=== PATIENT | female | born 1960 | race Caucasian/White ===

== ENCOUNTER 2016-07-21 14:36 | Emergency (ER) | payer MEDICAID, OTHER ==
[2016-07-21 14:46] VITALS: BP 146/82
[2016-07-21] MEDS ORDERED: Albuterol 2.5 MG/3 ML NEB.SOL* (0.083%) INH ONE (15:09)
[2016-07-21] MEDS ORDERED: Ipratropium 0.5MG/2.5ML NEB* 0.5 MG/2.5 ML NEB.SOLN INH ONE (15:09)
--- NOTE | 2016-07-21 15:40 | RAD ---
INDICATION: Cough and wheezing. COMPARISON: Comparison is made with a prior chest x-ray study from June 28, 2015. TECHNIQUE: Dual-energy PA and lateral views of the chest were obtained. FINDINGS: The heart is within normal limits in size. There is a new focal area of increased density present medially at the right lung base which appears to be in the right middle lobe most consistent with pneumonia. No pleural effusion is seen. The lungs are hyperinflated with flattening of the diaphragms consistent with chronic obstructive pulmonary disease. IMPRESSION: 1. RIGHT MIDDLE LOBE INFILTRATE MOST CONSISTENT WITH PNEUMONIA. RECOMMEND FOLLOW-UP CHEST X-RAYS TO RESOLUTION. 2. COPD.
--- NOTE | 2016-07-21 16:31 | UC ---
Respiratory Complaint HPI - HPI Summary HPI Summary: TWO WEEKS OF WORSENING NONPRODUCTIVE COUGH AND WHEEZING, WITH SHORTNESS OF BREATH WORSE WITH EXERTION. 40 PACK YEAR SMOKER. HISTORY OF PNEUMONIA LAST YEAR. NO FEVER. NO CHEST PAIN. - History of Current Complaint Chief Complaint: UCRespiratory Stated Complaint: COUGH, AND CHEST CONGESTION Time Seen by Provider: 07/21/16 14:53 Hx Obtained From: Patient Hx Last Menstrual Period: feb 2015 Onset/Duration: Gradual Onset, Lasting Weeks, Still Present Timing: Constant Severity Initially: Mild Severity Currently: Moderate Character: Cough: Nonproductive Aggravating Factors: Exertion, Deep Breaths Alleviating Factors: Bronchodilator Associated Signs And Symptoms: Positive: Wheezing, URI, Nasal Congestion. Negative: Fever, Chills, Pleuritic Chest Pain, Hemoptysis, Dizziness, Calf Pain , Calf Swelling, Hoarseness, Sinus Discomfort - Risk Factors Pulmonary Embolism Risk Factors: Negative Cardiac Risk Factors: Negative Pseudomonas Risk Factors: Negative Tuberculosis Risk Factors: Negative - Allergies/Home Medications Allergies/Adverse Reactions: Allergies Allergy/AdvReac Type Severity Reaction Status Date / Time Penicillins Allergy Hives Verified 07/21/16 14:46 BEES Allergy SWELLING, Uncoded 07/01/15 16:33 SOB Home Medications: Home Medications Ibuprofen TAB* [Advil TAB*] 400 mg PO PRN 07/21/16 [History] PMH/Surg Hx/FS Hx/Imm Hx Previously Healthy: Yes Endocrine History Of: Denies: Diabetes, Thyroid Disease Cardiovascular History Of: Denies: Cardiac Disorders, Hypertension Respiratory History Of: Reports: COPD - possible, Asthma, Bronchitis - 20 YEARS AGO GI/ History Of: Denies: Ulcer - Surgical History Surgical History: Yes Surgery Procedure, Year, and Place: C [id number], [place]. [place] [facility] [place] [facility] [place], [place], [facility] [place] abdominal her[place] - Family History Known Family History: Positive: Hypertension, Other - Mother of lung cancer. Father unknown. - Social History Occupation: Unemployed Lives: With Family Alcohol Use: Daily Alcohol Amount: 1-2 BEERS Substance Use Type: None Smoking Status (MU): Current Every Day Smoker Type: Cigarettes Amount Used/How Often: <1 ppd Length of Time of Smoking/Using Tobacco: 40 years Have You Smoked in the Last Year: Yes Household Exposure Type: Cigarettes Cessation Counseling: Counseled 10+ Min - Immunization History Most Recent Tetanus Shot: unknown Review of Systems Constitutional: Negative Skin: Negative Eyes: Negative ENT: Negative Respiratory: Cough Cardiovascular: Negative Gastrointestinal: Negative Genitourinary: Negative Motor: Negative Neurovascular: Negative Musculoskeletal: Negative Neurological: Negative Psychological: Negative All Other Systems Reviewed And Are Negative: Yes Physical Exam Triage Information Reviewed: Yes Appearance: No Pain Distress, Well-Nourished, Ill-Appearing - MILD Vital Signs: Initial Vital Signs Temp 96.2 F 07/21/16 14:42 Pulse 82 07/21/16 14:42 Resp 20 07/21/16 14:42 BP 146/82 07/21/16 14:42 Pulse Ox 96 07/21/16 14:42 Vital Signs Reviewed: Yes Eye Exam: Normal ENT Exam: Normal ENT: Positive: Normal ENT inspection, Hearing grossly normal, Pharynx normal, TMs normal Dental Exam: Normal Neck exam: Normal Neck: Positive: Supple, Nontender, No Lymphadenopathy Respiratory: Positive: Chest non-tender, No respiratory distress, No accessory muscle use, Wheezing Cardiovascular Exam: Normal Cardiovascular: Positive: RRR, No Murmur, Pulses Normal Abdominal Exam: Normal Abdomen Description: Positive: Nontender, No Organomegaly Musculoskeletal Exam: Normal Neurological Exam: Normal Psychological Exam: Normal Skin Exam: Normal UC Diagnostic Evaluation - Laboratory O2 Sat by Pulse Oximetry: 96 Respiratory Course/Dx - Differential Dx/Diagnosis Differential Diagnosis/HQI/PQRI: Bronchitis, Exacerbation Of COPD, Sinusitis Provider Diagnoses: COMMUNITY ACQUIRED PNEUMONIA. COPD. TOBACCO ABUSE Discharge - Discharge Plan Condition: Stable Disposition: HOME Prescriptions: Albuterol HFA INHALER* [Ventolin HFA Inhaler*] 1 - 2 puff INH Q4H PRN #1 mdi PRN Reason: Wheezing Clarithromycin TAB* [Biaxin TAB*] 500 mg PO BID #14 tab Patient Education Materials: How to Stop Smoking (ED), COPD (Chronic Obstructive Pulmonary Disease) (ED), Community Acquired Pneumonia (ED) [place]errals: [facility] [place] [Outside] No Primary Care Phys,NOPCP [Primary Care Provider] - Additional Instructions: PLEASE ESTABLISH PRIMARY CARE AND FOLLOW UP FOR REPEAT CHEST XRAY IN SEVEN DAYS. PLEASE GO TO EMERGENCY DEPARTMENT IF SYMPTOMS WORSEN, OR IF NEW SYMPTOMS DEVELOP
== END 2016-07-21 16:25 | disposition home or self-care (01) ==
LOC: UCEAST 14:36
DX: J18.8 Other pneumonia, unspecified organism (principal); J45.909 Unspecified asthma, uncomplicated; Z88.0 Allergy status to penicillin; F17.290 Nicotine dependence, other tobacco product, uncomplicated
CPT/HCPCS: 71020; 99212; G0463; J7644

== ENCOUNTER 2017-05-20 15:18 | Emergency (ER) | payer OTHER ==
[2017-05-20 15:49] VITALS: BP 134/83
--- NOTE | 2017-05-20 16:27 | RAD ---
HISTORY: Left thumb and wrist pain after fall COMPARISONS: None VIEWS: 3, Frontal, lateral, and oblique views of the left wrist FINDINGS: BONE DENSITY: Normal. BONES: There is no displaced fracture. JOINTS: There is advanced osteoarthritis of the first CMC joint. ALIGNMENT: There is no dislocation. SOFT TISSUES: Unremarkable. OTHER FINDINGS: None. IMPRESSION: OSTEOARTHRITIS. NO ACUTE OSSEOUS INJURY. IF SYMPTOMS PERSIST, RECOMMEND REPEAT IMAGING.
--- NOTE | 2017-05-20 16:27 | RAD ---
HISTORY: Left thumb and wrist pain after fall COMPARISONS: None VIEWS: 3, Frontal, lateral, and oblique views of the first digit of the left hand FINDINGS: BONE DENSITY: Normal. BONES: There is no displaced fracture. JOINTS: There is advanced osteoarthritis of the first CMC joint. There is osteoarthritis of the first MCP joint. ALIGNMENT: There is no dislocation. SOFT TISSUES: Unremarkable. OTHER FINDINGS: None. IMPRESSION: OSTEOARTHRITIS. NO ACUTE OSSEOUS INJURY. IF SYMPTOMS PERSIST, RECOMMEND REPEAT IMAGING.
--- NOTE | 2017-05-20 16:29 | UC ---
Upper Extremity HPI - HPI Summary HPI Summary: 56 y/o female presents to the urgent care c/o left thumb and wrist pain that has worse the past week. Pt reports she fell on February/2017 and injured her thumb. However she didn't seek any medical treatment. Pt also states she has Hx of B/L carpel tunel surgery many years ago. Pain is sharp and is 8/10 with movement and 4/10 with rest. she has taken Aleve PO to alleviate symptoms. Pt denies numbness and tingling over the thumb or hand, fever, SOB, chest pain, abdominal pain, N/V/D. She works in a farm. - History of Current Complaint Chief Complaint: UCUpperExtremity Stated Complaint: THUMB INJURY Time Seen by Provider: 05/20/17 15:29 Hx Obtained From: Patient Hx Last Menstrual Period: feb 2015 Onset/Duration: Sudden Onset, Lasting Weeks - since february/2017, Still Present, Worse Since - last week Severity Initially: Mild Severity Currently: Moderate Pain Intensity: 8 Pain Scale Used: 0-10 Numeric Location Of Pain: Is Discrete @ - At left thumb and left wrist Character: Sharp Aggravating Factor(s): Movement, Lifting, Flexion, Extension Alleviating Factor(s): OTC Meds, Rest Associated Signs And Symptoms: Positive: Swelling. Negative: Fever, Numbness/ Tingling - Risk Factors Non-Orthopedic Risk Factor: Negative DVT Risk Factors: Negative Septic Arthritis Risk Factor: Negative - Allergies/Home Medications Allergies/Adverse Reactions: Allergies Allergy/AdvReac Type Severity Reaction Status Date / Time Penicillins Allergy Hives Verified 05/20/17 15:49 BEES Allergy Intermediate SWELLING, Uncoded 05/20/17 15:49 SOB PMH/Surg Hx/FS Hx/Imm Hx Previously Healthy: Yes Respiratory History: Asthma - Surgical History Surgical History: Yes Surgery Procedure, Year, and Place: C [id number], [place]. C SECTION 1987, [facility]. RIGHT CARPAL TUNNEL, 1991, [facility]. LEFT CARPAL TUNNEL, 2001, [facility]. abdominal hernia - Family History Known Family History: Positive: Hypertension Family History: Lung cancer - Social History Alcohol Use: Daily Alcohol Amount: 1-2 BEERS Substance Use Type: None Smoking Status (MU): Current Every Day Smoker Type: Cigarettes Amount Used/How Often: <1 ppd Length of Time of Smoking/Using Tobacco: 40 years Have You Smoked in the Last Year: Yes Household Exposure Type: Cigarettes - Immunization History Most Recent Influenza Vaccination: not UTD Most Recent Tetanus Shot: unknown Review of Systems Constitutional: Negative Skin: Negative Eyes: Negative ENT: Negative Respiratory: Negative Cardiovascular: Negative Gastrointestinal: Negative Genitourinary: Negative Motor: Decreased ROM - RT thumb and RT wrist Neurovascular: Negative Musculoskeletal: Other: - RT wrist pain and RT thumb pain Neurological: Negative Psychological: Negative Is Patient Immunocompromised?: No All Other Systems Reviewed And Are Negative: Yes Physical Exam Triage Information Reviewed: Yes Vital Signs: Initial Vital Signs Temp 98.7 F 05/20/17 15:42 Pulse 72 05/20/17 15:42 BP 134/83 05/20/17 15:42 Pulse Ox 97 05/20/17 15:42 - Additional Comments Vital Signs Reviewed: Yes General: Well-Appearing, No Pain Distress, Well-Nourished - female adolescent w/ o any apparent distress Eyes: Positive: Conjunctiva Clear - PERRLA, EOMI ENT: Positive: Normal ENT inspection, Hearing grossly normal, Pharynx normal, TMs normal, Uvula midline Neck: Positive: Supple, Nontender, No Lymphadenopathy Respiratory: Positive: Chest non-tender, Lungs clear, Normal breath sounds, No respiratory distress Cardiovascular: Positive: RRR, No Murmur, Pulses Normal, Brisk Capillary Refill Abdomen Description: Positive: Nontender, No Organomegaly, Soft. Negative: CVA Tenderness (R), CVA Tenderness (L) Bowel Sounds: Positive: Present Musculoskeletal: Positive: Strength Intact, Other: Neurological Exam: Normal Musculoskeletal: Positive: Wrist: the R wrist is without obvious asymmetry or deformity when compared to the L wrist. No surface trauma, open wounds, swelling, or obvious deformity. No overlying erythema or warmth. No bony crepitus. Point tenderness over the thenar eminence and ventral side of wrist. No scaphoid fullness or tenderness to direct palpation or axial load. Decreased ROM due to pain. Motor/sensory function of ulnar, radial, median nerves intact. Ulnar and radial pulses intact. Plhalen test and tinel test positive. Negative Foreign test Psychological Exam: Normal Skin Exam: Normal Upper Extremity Course/Dx - Course Course Of Treatment: 56 y/o female presents to the urgent care c/o left thumb and wrist pain that has worse the past week. Pt reports she fell on 2016 and injured her thumb. However she didn't seek any medical treatment. Pt also states she has Hx of B/L carpel tunel surgery many years ago. Pain is sharp and is 8/10 with movement and 4/10 with rest. she has taken Aleve PO to alleviate symptoms. Pt denies numbness and tingling over the thumb or hand, fever, SOB, chest pain, abdominal pain, N/V/D. She works in a farm. Hx obtained. RT thumb and RT wrist X-ray ordered, Impression:There is advanced osteoarthritis of the first MCCJ. Pt's wrist immobilized with thumb spica. Pt advised if not improvement or worsening of symptoms to f/u with Orthopedic DR Villalobos in 1 week for further management. Pt Rx Naproxen PO and advised RICE. PT explained D/C instructions. Pt understood and agreed with plan of care. - Differential Dx/Diagnosis Differential Diagnosis/HQI/PQRI: Arthritis, Contusion, Fracture (Closed), Strain , Sprain Provider Diagnoses: 1-Acute Rt thumb pain and RT wrist pain s/p fall. 2- Osteorthritis of the RT first MCM joint Discharge - Discharge Plan Condition: Stable Disposition: HOME Prescriptions: Naproxen [Naproxen 500 mg] 500 mg PO Q8H PRN #30 tab PRN Reason: Pain Patient Education Materials: Osteoarthritis (ED) Referrals: [facility] REFERRAL [Outside] - 1 Week Fermin Villalobos MD [Medical Doctor] - 1 Week Additional Instructions: 1-Please take medications after meals as directed to alleviate pain and swelling. 2-Please apply ice, keep your thumb immobilized with the splint. 3- Please f/u with Orthopedic or your PCP in 1 week is not improvement of symptoms for further evaluation and treatment.
== END 2017-05-20 16:46 | disposition home or self-care (01) ==
LOC: UCEAST 15:18
DX: M19.032 Primary osteoarthritis, left wrist (principal); M25.532 Pain in left wrist; M19.042 Primary osteoarthritis, left hand; M79.645 Pain in left finger(s); J45.909 Unspecified asthma, uncomplicated; Z88.0 Allergy status to penicillin; F17.210 Nicotine dependence, cigarettes, uncomplicated
CPT/HCPCS: 99213; G0463

== ENCOUNTER 2017-06-19 15:09 | Emergency (ER) | payer OTHER ==
[2017-06-19 15:34] VITALS: BP 112/67
[2017-06-19] MEDS ORDERED: Ibuprofen TAB* 600 MG PO ONE (17:01)
--- NOTE | 2017-06-19 17:25 | RAD ---
INDICATION: Pain after lifting heavy object COMPARISON: None TECHNIQUE: AP, lateral, and oblique views were obtained. FINDINGS: There is no acute bony change. There is advanced osteoarthritis about the first CMC articulation with sclerosis, hypertrophic change, and subchondral cyst formation. No additional significant bony findings are noted. The soft tissues are normal. The articular relationships are otherwise maintained. IMPRESSION: ADVANCED FIRST CMC JOINT OSTEOARTHRITIS
--- NOTE | 2017-07-14 15:52 | UC ---
Hand/Wrist HPI - HPI Summary HPI Summary: Popping and then pain in left wrist after picking up a propane tank and throwing it in a truck - History Of Current Complaint Chief Complaint: UCUpperExtremity Stated Complaint: WRIST INJURY Time Seen by Provider: 06/19/17 16:56 Hx Obtained From: Patient Hx Last Menstrual Period: feb 2015 ?: No Onset/Duration: Sudden Onset Severity Initially: Moderate Severity Currently: Moderate Pain Intensity: 5 Pain Scale Used: 0-10 Numeric Character Of Pain: Aching, Throbbing Aggravating Factor(s): Movement, Lifting Alleviating Factor(s): Nothing, Ice, OTC Meds Associated Signs And Symptoms: Positive: Negative Related History: Dominant Hand Right - Allergies/Home Medications Allergies/Adverse Reactions: Allergies Allergy/AdvReac Type Severity Reaction Status Date / Time MS Penicillins [Penicillins] Allergy Hives Verified 06/19/17 15:34 BEES Allergy Intermediate SWELLING, Uncoded 05/20/17 15:49 SOB PMH/Surg Hx/FS Hx/Imm Hx Previously Healthy: Yes - Surgical History Surgical History: Yes Surgery Procedure, Year, and Place: C [id number], [place]. C SECTION 1987, [facility]. RIGHT CARPAL TUNNEL, 1991, [facility]. LEFT CARPAL TUNNEL, 2001, [facility]. abdominal hernia - Family History Known Family History: Positive: Hypertension, Other - Mother of lung cancer. Father unknown. Family History: Lung cancer - Social History Occupation: Unemployed Lives: With Family Alcohol Use: Daily Alcohol Amount: 1-2 BEERS Substance Use Type: None Smoking Status (MU): Heavy Every Day Tobacco Smoker Type: Cigarettes Amount Used/How Often: 1 ppd Length of Time of Smoking/Using Tobacco: since age 16 Have You Smoked in the Last Year: Yes Household Exposure Type: Cigarettes - Immunization History Most Recent Influenza Vaccination: not UTD Most Recent Tetanus Shot: unknown Review of Systems Constitutional: Negative Skin: Negative Eyes: Negative ENT: Negative Respiratory: Negative Cardiovascular: Negative Gastrointestinal: Negative Genitourinary: Negative Motor: Negative Neurovascular: Negative Musculoskeletal: Arthralgia - left wrist Neurological: Negative Psychological: Negative Is Patient Immunocompromised?: No All Other Systems Reviewed And Are Negative: Yes Physical Exam Triage Information Reviewed: Yes Appearance: Well-Appearing, No Pain Distress, Well-Nourished Vital Signs: Initial Vital Signs Temp 98.2 F 06/19/17 15:26 Pulse 97 06/19/17 15:26 Resp 16 06/19/17 15:26 BP 112/67 06/19/17 15:26 Pulse Ox 95 06/19/17 15:26 Vital Signs Reviewed: Yes Eye Exam: Normal Eyes: Positive: Conjunctiva Clear ENT Exam: Normal ENT: Positive: Normal ENT inspection, Hearing grossly normal. Negative: Nasal congestion, Nasal drainage, Trismus, Muffled voice, Hoarse voice, Dental tenderness, Sinus tenderness Dental Exam: Normal Neck exam: Normal Neck: Positive: Supple, Nontender Respiratory Exam: Normal Respiratory: Positive: Chest non-tender, No respiratory distress, No accessory muscle use Cardiovascular Exam: Normal Cardiovascular: Positive: RRR, Pulses Normal, Brisk Capillary Refill Musculoskeletal Exam: Normal Musculoskeletal: Positive: Strength Intact, ROM Intact, No Edema Neurological Exam: Normal Neurological: Positive: Alert, Muscle Tone Normal Psychological Exam: Normal Skin Exam: Normal Diagnostics - Radiology No standard instances Xray Interpretation: Positive (See Comments) Radiology Interpretation Completed By: Radiologist - first digit osteoarthritis Hand/Wrist Course/Dx - Course Course Of Treatment: splint, ice, nsaid, nicotine cesasation inflrmation follow with pcp prn - Differential Dx/Diagnosis Provider Diagnoses: left wrist tendonitis, left thumb osteoarthritis, nicotine dependent Discharge - Discharge Plan Condition: Stable Disposition: HOME Prescriptions: Meloxicam(NF) [Mobic(NF)] 7.5 mg PO DAILY #30 tab Patient Education Materials: Arthritis (ED) Referrals: No Primary Care Phys,NOPCP [Primary Care Provider] - Earline Gamble MD [Medical Doctor] - 1 Week
== END 2017-06-19 17:38 | disposition home or self-care (01) ==
LOC: UCEAST 15:09
DX: M77.9 Enthesopathy, unspecified (principal); M19.042 Primary osteoarthritis, left hand; F17.210 Nicotine dependence, cigarettes, uncomplicated; Z88.0 Allergy status to penicillin; Z91.030 Bee allergy status
CPT/HCPCS: 99212; A9270-GY; G0463

== ENCOUNTER 2018-06-05 18:41 | Emergency (ER) | payer OTHER ==
--- OUTSIDE RECORDS SUMMARY | 2018-06-05 18:46 | XMS REPORT | Continuity of Care Document ---
:1960 External Reference #:[id number] Author Name Sera Foster Care Team Providers Name Role Phone Patient's Choice Primary Care Physician Unavailable Payers Type Date Identification Numbers Payment Provider Subscriber Effective: Policy Number: [id number] Dada Kaufman 2016 Group Number: [id number] [address] PayID: [id number] [place] [address] Advance Directives Description No Information Available Problems Description No Information Family History Date Family Member(s) Problem(s) Comments General No Current Problems Social History Type Date Description Comments Sex Unknown Lives With Alone Occupation landscaping ETOH Use Occasionally consumes alcohol Tobacco Use Start: Unknown Patient is a current smoker, smokes every day Smoking Status Reviewed: 05/25/18 Patient is a current smoker, smokes every day Exercise Type/Frequency Exercises sporadically Allergies, Adverse Reactions, Alerts Date Description Reaction Status Severity Comments 06/24/2017 Penicillin hives Active 06/24/2017 Bee Sting swelling sob Active Medications Medication Date Status Form Strength Qnty SIG Indications Ordering Provider Aleve Active Capsules 220mg 1-2 by Unknown 000 mouth twice a day as needed Albuterol Hx Nebulizer (5mg/ML) 2 puffs Unknown Sulfate 000 - 0.5% every 4 hours as 018 needed sob or wheeze Meloxicam Hx Tablets 7.5mg take one Unknown 000 - tab twice daily as 018 needed for pain, avoid other nsaids Medications Administered in Office Medication Date Status Form Strength Qnty SIG Indications Ordering Provider Celestone 3 mg Administered Injection Fermin and 3mg 018 MD Wilfredo Immunizations Description No Information Available Vital Signs Date Vital Result Comment 05/25/2018 8:39am Height 62 inches 5'2" Weight 177.00 lb Heart Rate 86 /min BP Systolic 140 mmHg BP Diastolic 90 mmHg Respiratory Rate 20 /min Body Temperature 98.9 F Pain Level 4 BMI (Body Mass Index) 32.4 kg/m2 03/10/2018 8:09am Heart Rate 84 /min BP Systolic 152 mmHg BP Diastolic 90 mmHg Respiratory Rate 16 /min Pain Level 5 09/11/2017 8:18am Height 62 inches 5'2" Weight 180.00 lb Heart Rate 83 /min Respiratory Rate 14 /min Body Temperature 98.1 F Pain Level 3 BMI (Body Mass Index) 32.9 kg/m2 08/07/2017 10:23am Height 62 inches 5'2" Weight 180.00 lb Heart Rate 80 /min Respiratory Rate 18 /min Body Temperature 98.1 F Pain Level 8 BMI (Body Mass Index) 32.9 kg/m2 07/27/2017 11:01am Height 62 inches 5'2" Weight 180.00 lb Heart Rate 90 /min BP Systolic 122 mmHg BP Diastolic 84 mmHg Respiratory Rate 14 /min Body Temperature 97.6 F Pain Level 1 BMI (Body Mass Index) 32.9 kg/m2 06/24/2017 10:00am Height 62 inches 5'2" Weight 180.00 lb BP Systolic 120 mmHg BP Diastolic 68 mmHg Respiratory Rate 20 /min Body Temperature 98.1 F Pain Level 7 BMI (Body Mass Index) 32.9 kg/m2 Results Description No Information Available Procedures Date Code Description Status 08/07/2017 74549 Inject/Drain Joint/Bursa Small W/O US Completed 06/24/2017 84391 closed tx of ulnar styloid fracture Completed 06/22/2012 59797 EKG, Interpretation Only Completed Encounters Type Date Location Provider Dx Diagnosis Office Visit 03/10/2018 [facility] Fermin Villalobos [id number] [facility] osteoarth of first carpometacarp joint, l hand Office Visit 09/11/2017 [facility] Fermin Villalobos [id number] [facility] primary 8:[facility]a [facility] osteoarth of first carpometacarp joint, l hand Office Visit 08/07/2017 [facility] [id number] 10:00a [facility] osteoarth of first carpometacarp joint, l hand Plan of Treatment Future Appointment(s):06/29/2018 8:30 am - Fermin Villalobos MD at [facility]..06/14/2018 7:30 am - Fermin Villalobos MD at [facility]..05/25/2018 - Fermin Villalobos, [id number] Unilateral primary osteoarthritis of first carpometacarpal jFollow up:Follow up: 10-14 days postop
[2018-06-05 18:58] VITALS: BP 143/86
--- NOTE | 2018-06-05 19:35 | UC ---
Lower Extremity/Ankle HPI - HPI Summary HPI Summary: 57-year-old woman comes in to clinic today with a chief complaint of left fourth toe pain and swelling. Pain started on May 10, 2018 when she accidentally kicked a lamp with her left foot while barefoot. She tells me that the left second third and fourth toes were all swollen and painful at that time. Since then the second and third toes have returned to normal however the fourth toe continues to be swollen and painful. Pain is worse with walking it' s better with rest. No skin break. - History of Current Complaint Chief Complaint: UCLowerExtremity Stated Complaint: TOE INJURY Time Seen by Provider: 06/05/18 19:00 Hx Last Menstrual Period: feb 2015 Pain Intensity: 7 - Allergies/Home Medications Allergies/Adverse Reactions: Allergies Allergy/AdvReac Type Severity Reaction Status Date / Time Penicillins Allergy Hives Verified 06/05/18 18:58 BEES Allergy Intermediate SWELLING, Uncoded 06/05/18 18:58 SOB PMH/Surg Hx/FS Hx/Imm Hx Respiratory History: COPD - Surgical History Surgical History: Yes Surgery Procedure, Year, and Place: C [id number], [facility] [place] [facility] [place] 1991, [facility]. LEFT CARPAL TUNNEL[place], [facility] [place] abdominal hernia - Family History Known Family History: Positive: Hypertension, Other - Mother of lung cancer. Father unknown. Family History: Lung cancer - Social History Alcohol Use: Daily Alcohol Amount: 1-2 BEERS Substance Use Type: None Smoking Status (MU): Current Every Day Smoker Type: Cigarettes Amount Used/How Often: 1 ppd Length of Time of Smoking/Using Tobacco: since age 16 Have You Smoked in the Last Year: Yes Household Exposure Type: Cigarettes - Immunization History Most Recent Influenza Vaccination: not UTD Most Recent Tetanus Shot: unknown Review of Systems All Other Systems Reviewed And Are Negative: Yes Constitutional: Positive: Negative Skin: Positive: Negative Eyes: Positive: Negative ENT: Positive: Negative Respiratory: Positive: Negative Cardiovascular: Positive: Negative Gastrointestinal: Positive: Negative Motor: Positive: Negative Neurovascular: Positive: Negative Musculoskeletal: Positive: Other: - SEE HPI Neurological: Positive: Negative Psychological: Positive: Negative Is Patient Immunocompromised?: No Physical Exam Triage Information Reviewed: Yes Appearance: Well-Appearing, No Pain Distress, Well-Nourished Vital Signs: Initial Vital Signs Temp 99.8 F 12/29/18 18:53 Pulse 96 06/05/18 18:53 Resp 16 06/05/18 18:53 BP 143/86 06/05/18 18:53 Pulse Ox 96 06/05/18 18:53 Vital Signs Reviewed: Yes Eye Exam: Normal Eyes: Positive: Conjunctiva Clear Neck exam: Normal Neck: Positive: Supple Respiratory: Positive: No respiratory distress Musculoskeletal: Positive: Other: - Left fourth toe is swollen and mildly tender to palpation. Normal capillary refill no sensation deficit no skin break no clinical evidence of infection at this time. Neurological Exam: Normal Neurological: Positive: Alert, Muscle Tone Normal Psychological Exam: Normal Psychological: Positive: Age Appropriate Behavior Skin Exam: Normal Lower Extremity Course/Dx - Course Course Of Treatment: X-ray shows a closed fracture of the left fourth toe with minimal displacement. Radiologist reading is pending. I discussed all this with the patient. Plan is a postop shOE will follow-up with orthopedics. - Differential Dx/Diagnosis Provider Diagnosis: Fracture of toe of left foot Discharge - Sign-Out/Discharge Documenting (check all that apply): Patient Departure All imaging exams completed and their final reports reviewed: No - Discharge Plan Condition: Stable Disposition: HOME Patient Education Materials: Toe Fracture (ED) Referrals: Jorge Booth MD [Medical Doctor] - Additional Instructions: FOLLOW UP WITH ORTHOPEDICS. GET RECHECKED FOR ANY WORSENING OF YOUR CONDITION OR QUESTIONS OR CONCERNS. - Billing Disposition and Condition Condition: STABLE Disposition: Home
--- NOTE | 2018-06-06 08:24 | UC ---
- Progress Note Progress Note: Final x-ray report reviewed. Agree with preliminary reading by provider. No change in plan of care. Course/Dx - Diagnoses Provider Diagnoses: Fracture of toe of left foot Discharge - Sign-Out/Discharge Documenting (check all that apply): Post-Discharge Follow Up All imaging exams completed and their final reports reviewed: Yes - Discharge Plan Condition: Stable Disposition: HOME Patient Education Materials: Toe Fracture (ED) Referrals: Jorge Booth MD [Medical Doctor] - Additional Instructions: FOLLOW UP WITH ORTHOPEDICS. GET RECHECKED FOR ANY WORSENING OF YOUR CONDITION OR QUESTIONS OR CONCERNS. - Billing Disposition and Condition Condition: STABLE Disposition: Home
== END 2018-06-05 19:48 | disposition home or self-care (01) ==
LOC: UCEAST 18:41
DX: S92.502A Displaced unspecified fracture of left lesser toe(s), initial encounter for closed fracture (principal); J44.9 Chronic obstructive pulmonary disease, unspecified; F17.210 Nicotine dependence, cigarettes, uncomplicated; Z88.0 Allergy status to penicillin; Z91.030 Bee allergy status; W22.8XXA Striking against or struck by other objects, initial encounter; Y92.9 Unspecified place or not applicable
CPT/HCPCS: 99211; G0463

== ENCOUNTER → 2018-06-14 05:40 | Day surgery (SDC) | payer OTHER ==
[~2018-06-14 05:40] MED LIST: Buffered Lidocaine 0.9% SYRIN* 5 ML/SYR SYRINGE INTRADERM ONE; Bupivacaine 0.25% SDV PF* 10 ML VIAL INJ ONE; Bupivacaine 0.5%* 50 ML VIAL ONE; Clindamycin 900 MG/D5W BAG(*) 900 MG/50 ML BAG IVPB ONE; Dexamethasone IV* 4 MG/ML 1 ML (4 MG) IV SLOW PU ONE; Dexamethasone IV* 4 MG/ML 1 ML (4 MG) ONE; EPHEDrine (Pressors)* 50 MG/ML VIAL ONE; Famotidine IV* 10 MG/ML 2 ML (20 mg) IV ONE; Famotidine IV* 10 MG/ML 2 ML (20 mg) ONE; HYDROcodone/ACETAMIN 5-325 MG* 1 TAB PO PRN; Ketorolac INJ* 30 MG/ML 1 ML VIAL ONE; Lactated Ringers 1000 ML Bag* 1,000 ML IV SCH; Levalbuterol HFA INHALER* 1 PUFF MDI ONE; Lidocaine 2% PF * 5 ML VIAL ONE; Midazolam* 1 MG/ML 5 ML VIAL (5 MG) ONE; Naloxone* 0.4 MG/ML 1 ML VIAL IV PRN; Ondansetron INJ* 2 MG/ML VIAL ONE; PROCHLORPERAZINE INJ 5 MG/ML 2 ML VIAL IV PRN; Propofol* 10 MG/ML 20 ML BTL ONE; fentaNYL* 50 MCG/ML 2 ML VIAL (100 MCG VIAL) IV PRN; fentaNYL* 50 MCG/ML 2 ML VIAL (100 MCG VIAL) ONE; oxyCODONE/Acetamin 5/325 MG* TAB ONE; oxyCODONE/Acetamin 5/325 MG* TAB PO PRN
[2018-06-14 10:47] VITALS: BP 140/89
--- NOTE | 2018-06-14 21:41 | OP ---
DATE OF OPERATION: 06/14/18 - [facility] DATE OF : 60 SURGEON: Fermin Villalobos MD CLICKING MACHINE OPERATOR: ADILIA Montano ANESTHESIOLOGIST: Dr. Dickey. ANESTHESIA: General. PRE-OP DIAGNOSIS: Left stage 3 carpometacarpal degenerative joint disease. POST-OP DIAGNOSIS: Left stage 3 carpometacarpal degenerative joint disease. OPERATIVE PROCEDURE: 1. Left thumb carpometacarpal arthroplasty with trapeziectomy. 2. Distally based split flexor carpi radialis tendon transfer for thumb suspension and tendon interposition. INDICATIONS: Clementina has had arthritis there for quite some time. I have been treating her nonoperatively for well over a year. She has had a good point now and so she presents for surgery to address the left thumb base. ESTIMATED BLOOD LOSS: 5 mL. COMPLICATIONS: None. FINDINGS: See above and below. DESCRIPTION OF PROCEDURE: Clementina was seen in the preoperative holding area. The correct site, side, and procedure were identified. We came back to the operating room where the arm was prepped and draped in the usual fashion and time-out was performed. The arm was exsanguinated with the Esmarch and the tourniquet was inflated to 250 mmHg. I then made a 2 to 3 cm longitudinal incision over the dorsal radial thumb base. Dissection was carried down longitudinally to preserve the traversing sensory nerves. The subperiosteal and capsular flaps were raised to expose the trapezium. The radial artery had been dissected free and retracted out of the way with a Ragnell retractor. Once the entirety of the trapezium was exposed, I went ahead and removed the trapezium in a piecemeal fashion taking care to preserve the scaphoid and the trapezoid. All of the trapezium was removed and then I created a bone tunnel from the dorsal radial aspect of the thumb metacarpal base extending out to the volar ulnar articular surface near the base of the second metacarpal and the insertion of the FCR tendon. I irrigated out the wound and we turned our attention to the tendon transfer. I made a 1-cm transverse incision over the distal aspect of the FCR tendon. The sheath was opened. The tendon was split longitudinally with the 15 blade and then I passed a 26-gauge wire through my tendon split. I released the sheath distally. I made a second transverse incision over the FCR tendon about 8 or so cm, it was proximal to the other incision. The sheath was opened up. The proximal sheath was released. I then passed a Leatha clamp from my proximal wound out to my distal wound where I retrieved the 26-gauge wire and pulled this back into the proximal wound splitting the tendon in half and releasing it at the musculotendinous junction. The muscular remnants were removed off the free edge of the tendon and then that was secured with a 3-0 Ethibond suture to prevent fraying. I then used two 26-gauge wires to pass the free end of the tendon down into the thumb base wound. The tendon split was completed down to the base of the second metacarpal. I then passed my free end of the tendon through the bone tunnel of the base of the metacarpal back around the intact limb of the FCR tendon and then appropriate tension was set as the tendon transfer was secured with three [id number] 3-0 Ethibond sutures. The first sewed all 3 limbs of the tendon transfer together. The second two sutures sewed intact limb to intact limb. The remainder of the tendon was rolled up as a ball and then docked as an interposition at the side of the trapeziectomy. The scaphoid trapezoid joint had been examined and looked healthy and the articular cartilage looked good. At this point, everything was looking really good and so we irrigated out the wound. The capsule was closed with 3-0 Vicryl suture. The skin was closed with 4-0 nylon suture. 0.25% plain Marcaine was infiltrated all about the operative area. The wounds were dressed and thumb spica splint was applied. Tourniquet was deflated and she was taken to the recovery room in stable condition. [id number]/[facility] #: [id number] [facility]ITALClemetn
== END | disposition home or self-care (01) ==
LOC: OR 05:40
PROVIDERS: ATTEND Orthopaedic Surgery Hand Surgery
DX: M18.12 Unilateral primary osteoarthritis of first carpometacarpal joint, left hand (principal); J44.9 Chronic obstructive pulmonary disease, unspecified; F17.210 Nicotine dependence, cigarettes, uncomplicated
CPT/HCPCS: 88304; 88311; A9270-GY; J1100; J1885; J2250; J2405; J2704; J3010; J3490

== ENCOUNTER 2020-10-09 09:33 | Observation (INO) ==
[2020-10-09] MEDS ORDERED: Albuterol 2.5mg/3 ml (0.083%) NEB.SOLN INH ONE (10:00)
[2020-10-09 10:19] LABS: ABS Basophils 0.1 10^3/ul (0-0.2); ABS Eosinophils 0.1 10^3/ul (0-0.6); ABS Lymphocytes 1.5 10^3/ul (1.0-4.8); ABS Monocytes 0.5 10^3/ul (0-0.8); ABS Neutrophils 4.4 10^3/ul (1.5-7.7); Eosinophil % 1.2 %; Hematocrit 47 % (35-47); Hemoglobin 15.6 g/dL (12.0-16.0); Lymphocyte % 23.3 %; Mean Corpuscular HGB Conc 33 g/dL (31-36); Mean Corpuscular Hemoglobin 33 pg (27-31); Mean Corpuscular Volume 98 fL (80-97); Mean Platelet Volume 8.1 fL (7.4-10.4); Platelet Count 209 10^3/uL (150-450); Red Blood Count 4.77 10^6 /uL (3.70-4.87); Red Cell Distribution Width 15 % (10-15); White Blood Count 6.6 10^3/uL (3.5-10.8)
[2020-10-09] MEDS ORDERED: Albuterol HFA INHALER 8 gm MDI INH ONE (10:20)
[2020-10-09 10:37] LABS: ALT 34 U/L (7-52); AST 26 U/L (13-39); Albumin/Globulin Ratio 1.6 (1-3); Alkaline Phosphatase 98 U/L (34-104); Anion Gap 5 mmol/L (2-11); Blood Urea Nitrogen 30 mg/dL (6-24); CO2 Carbon Dioxide 37 mmol/L (22-32); Calcium 8.6 mg/dL (8.6-10.3); Chloride 97 mmol/L (101-111); EGFR African American 82.5 (>60); EGFR Non-African American 68.2 (>60); Globulin 2.5 g/dL (2-4); Glucose 108 mg/dL (70-100); Magnesium 1.8 mg/dL (1.9-2.7); Potassium 3.9 mmol/L (3.5-5.0); Sodium 139 mmol/L (135-145); Total Protein 6.5 g/dL (6.4-8.9)
[2020-10-09] MEDS ORDERED: Furosemide 40 mg/4 ml IV VIAL IV ONE (11:10)
[2020-10-09] MEDS ORDERED: cefTRIAXone 1 gm/50 mL NS BAG 1 GM/50 ML BAG IV ONE (11:10)
[2020-10-09] MEDS ORDERED: Azithromycin 500 mg/250 ml NS 500 MG/250 ML BAG IVPB ONE (11:10)
[2020-10-09 11:12] LABS: Influenza A Molecular Negative (Negative); Influenza B Molecular Negative (Negative)
[2020-10-09] MEDS ORDERED: Albuterol 2.5mg/3 ml (0.083%) NEB.SOLN INH PRN (13:05)
[2020-10-09] MEDS ORDERED: Ondansetron 4 mg VIAL 2 MG/ML 2 ml VIAL IV PRN (13:05)
[2020-10-09] MEDS ORDERED: Enoxaparin 40 MG/0.4 ML SYR SUBCUT SCH ×2 (14:00)
[2020-10-09 14:22] LABS: Troponin I 0.04 ng/mL (<0.03)
[2020-10-09] MEDS ORDERED: Albuterol/Ipratropium NEB.SOL (2.5/0.5 MG) 3 ML NEB.SOLN INH SCH (15:00)
[2020-10-09] MEDS: SPIRIVA Respimat (tiotropium) 2.5 mcg/inh Inhaler INH SCH (15:58)
[2020-10-09 16:37] LABS: Vitamin B12 248 pg/mL (180-914)
[2020-10-09 16:42] LABS: Folate 10.88 ng/mL (5.90-24.80)
[2020-10-09] MEDS: Furosemide 40 mg/4 ml IV VIAL IV SLOW PU SCH (17:51)
[2020-10-09] MEDS: Albuterol HFA INHALER 8 gm MDI INH SCH ×2 (19:07→21:21)
[2020-10-09] MEDS: Mometasone/Formoter 100/5 MDI INH SCH (19:07)
[2020-10-09] MEDS ORDERED: Mometasone/Formoter 100/5 MDI INH SCH (21:00)
[2020-10-10] MEDS: Albuterol HFA INHALER 8 gm MDI INH SCH ×4 (03:18→10:46)
[2020-10-10] MEDS: Mometasone/Formoter 100/5 MDI INH SCH (07:29)
[2020-10-10] MEDS: SPIRIVA Respimat (tiotropium) 2.5 mcg/inh Inhaler INH SCH (07:30)
[2020-10-10] MEDS: Furosemide 40 mg/4 ml IV VIAL IV SLOW PU SCH (07:53)
[2020-10-10] MEDS ORDERED: Nicotine PATCH 14 MG/24 HR PATCH TRANSDERM SCH ×2 (09:00)
[2020-10-10 13:57] VITALS: BP 100/62
== END 2020-10-10 14:50 | disposition home or self-care (01) ==
LOC: MED 09:33 → ED 09:33 → MED 20:49
PROVIDERS: ADMIT Hospitalist; ATTEND Internal Medicine

== ENCOUNTER 2022-04-17 23:40 | Inpatient (IN) ==
[2022-04-18] MEDS ORDERED: Adenosine 3 MG/ML 2 ml VIAL (6 mg) IV PUSH ONE (00:10)
[2022-04-18] MEDS ORDERED: methylPREDNISolone SOD SUCC 125 mg 2 ML VIAL IV ONE (00:11)
[2022-04-18] MEDS ORDERED: Albuterol 0.5% CONC CONTINUOUS NEB.SOL 5 mg/ml 20 ml BOT INH ONE (00:11)
[2022-04-18] MEDS ORDERED: Adenosine 3 MG/ML 2 ml VIAL (6 mg) ONE (00:31)
[2022-04-18 00:35] LABS: ABS Lymphocytes 1.5 10^3/ul (1.0-4.8); ABS Neutrophils 7.9 10^3/ul (1.5-7.7); Eosinophil % 0.1 %; Hematocrit 52 % (35-47); Hemoglobin 16.5 g/dL (12.0-16.0); Mean Corpuscular HGB Conc 32 g/dL (31-36); Mean Corpuscular Hemoglobin 31 pg (27-31); Mean Corpuscular Volume 97 fL (80-97); Mean Platelet Volume 8.2 fL (7.4-10.4); Nucleated Red Blood Cells % 0.2; Platelet Count 336 10^3/uL (150-450); Red Cell Distribution Width 16 % (10-15); White Blood Count 10.4 10^3/uL (3.5-10.8)
[2022-04-18 00:45] LABS: INR 1.04 (0.89-1.11)
[2022-04-18] MEDS ORDERED: Lorazepam PYXIS KEY PRN (00:55)
[2022-04-18] MEDS ORDERED: LORazepam 2 mg VIAL 1 ml IV PUSH ONE (00:55)
[2022-04-18 00:58] LABS: Albumin 4.1 g/dL (3.2-5.2); Albumin/Globulin Ratio 1.8 (1-3); Globulin 2.3 g/dL (2-4); Potassium 4.8 mmol/L (3.5-5.0); Total Bilirubin 0.5 mg/dL (0.2-1.0); Total Protein 6.4 g/dL (6.4-8.9); eGFR CKD-EPI 89.1 (>60)
[2022-04-18] MEDS ORDERED: Albuterol (2.5 MG) 0.5 % CONC 0.5 ML NEB.SOLN INH ONE (01:07)
[2022-04-18] MEDS ORDERED: Ondansetron 4 mg VIAL 2 MG/ML 2 ml VIAL IV PRN (01:50)
[2022-04-18] MEDS ORDERED: Albuterol 2.5mg/3 ml (0.083%) NEB.SOLN INH PRN (01:50)
[2022-04-18] MEDS ORDERED: Digoxin IV 0.5 MG/2 ML AMP (0.25 MG/ML) IV SLOW PU ONE ×2 (01:50→07:22)
[2022-04-18] MEDS ORDERED: Furosemide 20 mg/2 ml IV VIAL IV SLOW PU ONE (01:50)
[2022-04-18 01:58] LABS: PCO2 Arterial 95 mmHg (35-45); PO2 Arterial 94 mmHg (80-100)
[2022-04-18] MEDS ORDERED: Enoxaparin 40 MG/0.4 ML SYR SUBCUT SCH (02:00)
[2022-04-18] MEDS: cefTRIAXone 1 gm/50 mL D5W 1 GM/50 ML BAG IV SCH (02:28)
[2022-04-18 03:30] LABS: High Sensitivity Troponin 1 Hr 54 pg/mL (<15)
[2022-04-18] MEDS ORDERED: Iohexol 350 (CONTRAST) 500 ML MDV IV ONE (03:50)
[2022-04-18] MEDS: DOXYcycline 100 MG in NS 0.9% 250 ml 250 ML IVPB SCH ×2 (04:01→16:11)
[2022-04-18 04:04] LABS: PCO2 Arterial > 100 mmHg (35-45); PO2 Arterial 98 mmHg (80-100)
[2022-04-18] MEDS ORDERED: Succinylcholine 200 mg VIAL 20 mg/ml 10 ml VIAL (200 mg) ONE (04:08)
[2022-04-18] MEDS ORDERED: Rocuronium 50 mg VIAL 10 mg/ml 5 ml VIAL (50 mg) ONE (04:09)
[2022-04-18] MEDS ORDERED: Ketamine HCL 50 mg/ml 10 ml VIAL (500 MG) ONE (04:15)
[2022-04-18] MEDS: Propofol 10 mg/ml 100 ML BTL 100 ML ONE ×2 (04:22→05:06)
[2022-04-18] MEDS: Propofol 10 mg/ml 100 ML BTL 100 ML IV SCH ×4 (04:22→22:56)
[2022-04-18] MEDS ORDERED: fentaNYL 100 mcg/2 ml 50 MCG/ML VIAL IV SLOW PU ONE (04:33)
[2022-04-18] MEDS ORDERED: fentaNYL 100 mcg/2 ml 50 MCG/ML VIAL ONE (04:34)
[2022-04-18] MEDS: Enoxaparin 100 MG/ML SYR SUBCUT SCH ×2 (04:36→14:58)
[2022-04-18 05:52] LABS: PCO2 Arterial 80 mmHg (35-45); PO2 Arterial 69 mmHg (80-100)
[2022-04-18] MEDS: Albuterol/Ipratropium NEB.SOL (2.5/0.5 MG) 3 ML NEB.SOLN INH SCH ×4 (07:15→19:37)
[2022-04-18] MEDS: Mometasone/Formoter 200/5 MDI INH SCH (07:44)
[2022-04-18] MEDS: Pantoprazole VIAL 40 MG VIAL IV SCH (07:54)
[2022-04-18] MEDS: methylPREDNISolone SOD SUCC 125 mg 2 ML VIAL IV SCH ×2 (07:55→15:00)
[2022-04-18] MEDS: Furosemide 40 mg/4 ml IV VIAL IV SLOW PU SCH ×2 (07:56→16:11)
[2022-04-18] MEDS: Chlorhexidine MOUTHWASH 0.12% 15 ML UDC TOPICAL SCH ×5 (08:30→22:59)
[2022-04-18] MEDS ORDERED: Umeclidinium 62.5 MDI(NF) MDI INH SCH (09:00)
[2022-04-18] MEDS: fentaNYL 100 mcg/2 ml 50 MCG/ML VIAL IV SLOW PU PRN ×3 (09:07→17:38)
[2022-04-18 09:13] LABS: TSH Ultra Thyroid Stim Horm 1.19 mcIU/mL (0.34-5.60)
[2022-04-18 09:15] LABS: Free T3 3.1 pg/mL (2.5-3.9); Free T4 0.65 ng/dL (0.61-1.12)
[2022-04-18 10:06] LABS: HDL Cholesterol 61.7 mg/dL
[2022-04-18] MEDS: Thiamine 100 MG/ML 2 ml VIAL 500 MG in NS 0.9% 250 ml 250 ML IV SCH ×2 (11:40→20:18)
[2022-04-18 11:47] LABS: Hematocrit 51 % (35-47); Hemoglobin 16.5 g/dL (12.0-16.0); Mean Corpuscular HGB Conc 33 g/dL (31-36); Mean Corpuscular Hemoglobin 31 pg (27-31); Mean Corpuscular Volume 96 fL (80-97); Mean Platelet Volume 8.3 fL (7.4-10.4); Platelet Count 271 10^3/uL (150-450); Red Blood Count 5.28 10^6 /uL (3.70-4.87); Red Cell Distribution Width 15 % (10-15)
[2022-04-18] MEDS ORDERED: Metoprolol Tartrate 5 mg VIAL 5 ml VIAL (1 mg/ml) IV ONE (12:16)
[2022-04-18 12:29] LABS: Calcium 9.2 mg/dL (8.6-10.3); Magnesium 1.5 mg/dL (1.9-2.7); Potassium 4.7 mmol/L (3.5-5.0); eGFR CKD-EPI 82.5 (>60)
[2022-04-18] MEDS ORDERED: Acetaminophen IV 1 GM/100ML 1,000 MG/100 ML BAG IV ONE (14:15)
[2022-04-18] MEDS ORDERED: Metoprolol Tartrate 5 mg VIAL 5 ml VIAL (1 mg/ml) ONE (15:03)
[2022-04-18] MEDS: Metoprolol Tartrate 5 mg VIAL 5 ml VIAL (1 mg/ml) IV PRN (15:06)
[2022-04-18] MEDS ORDERED: Magnesium Sulfate IV 3 GM in NS 0.9% 100 ml BAG 100 ML IVPB ONE (15:21)
[2022-04-19] MEDS: methylPREDNISolone SOD SUCC 125 mg 2 ML VIAL IV SCH ×3 (01:04→15:10)
[2022-04-19] MEDS: Chlorhexidine MOUTHWASH 0.12% 15 ML UDC TOPICAL SCH ×6 (03:33→21:21)
[2022-04-19] MEDS: Enoxaparin 100 MG/ML SYR SUBCUT SCH ×2 (03:34→15:10)
[2022-04-19] MEDS: Thiamine 100 MG/ML 2 ml VIAL 500 MG in NS 0.9% 250 ml 250 ML IV SCH ×3 (03:35→18:04)
[2022-04-19] MEDS: Mometasone/Formoter 200/5 MDI INH SCH ×3 (03:43→19:06)
[2022-04-19] MEDS: Propofol 10 mg/ml 100 ML BTL 100 ML IV SCH ×6 (04:12→22:40)
[2022-04-19] MEDS: cefTRIAXone 1 gm/50 mL D5W 1 GM/50 ML BAG IV SCH (04:14)
[2022-04-19] MEDS: DOXYcycline 100 MG in NS 0.9% 250 ml 250 ML IVPB SCH ×2 (05:03→15:09)
[2022-04-19 05:17] LABS: ABS Lymphocytes 0.5 10^3/ul (1.0-4.8); ABS Monocytes 0.5 10^3/ul (0-0.8); ABS Neutrophils 10.5 10^3/ul (1.5-7.7); Hematocrit 47 % (35-47); Hemoglobin 15.1 g/dL (12.0-16.0); Lymphocyte % 4.2 %; Mean Corpuscular HGB Conc 32 g/dL (31-36); Mean Corpuscular Hemoglobin 31 pg (27-31); Mean Corpuscular Volume 95 fL (80-97); Mean Platelet Volume 8.4 fL (7.4-10.4); Platelet Count 292 10^3/uL (150-450); Red Blood Count 4.94 10^6 /uL (3.70-4.87); Red Cell Distribution Width 16 % (10-15); White Blood Count 11.5 10^3/uL (3.5-10.8)
[2022-04-19 06:02] LABS: Albumin 3.4 g/dL (3.2-5.2); Albumin/Globulin Ratio 1.5 (1-3); Calcium 8.6 mg/dL (8.6-10.3); Globulin 2.2 g/dL (2-4); Magnesium 2.3 mg/dL (1.9-2.7); Potassium 4.5 mmol/L (3.5-5.0); Total Bilirubin 0.6 mg/dL (0.2-1.0); Total Protein 5.6 g/dL (6.4-8.9)
[2022-04-19] MEDS: Pantoprazole VIAL 40 MG VIAL IV SCH (06:41)
[2022-04-19] MEDS: Albuterol/Ipratropium NEB.SOL (2.5/0.5 MG) 3 ML NEB.SOLN INH SCH ×4 (07:08→19:06)
[2022-04-19] MEDS: Furosemide 40 mg/4 ml IV VIAL IV SLOW PU SCH (07:22)
[2022-04-19] MEDS: fentaNYL 100 mcg/2 ml 50 MCG/ML VIAL IV SLOW PU PRN ×5 (10:13→21:36)
[2022-04-19] MEDS ORDERED: Dexmedetomidine 1,000 MCG in NS 0.9% 250 ml 240 ML IV SCH (13:00)
[2022-04-19] MEDS: Metoprolol Tartrate 5 mg VIAL 5 ml VIAL (1 mg/ml) IV PRN (13:17)
[2022-04-19] MEDS ORDERED: PHENYLEPHRINE DRIP IVPREMIX 50 MG/250 ML BAG IV SCH (17:00)
[2022-04-19] MEDS ORDERED: fentaNYL INFUSION 50 mcg/mL VL 2,500 MCG/50 ML VIAL IV SCH (22:00)
[2022-04-20] MEDS: methylPREDNISolone SOD SUCC 125 mg 2 ML VIAL IV SCH ×3 (00:36→15:53)
[2022-04-20] MEDS: Albuterol/Ipratropium NEB.SOL (2.5/0.5 MG) 3 ML NEB.SOLN INH SCH ×4 (00:40→19:07)
[2022-04-20] MEDS ORDERED: fentaNYL INFUSION 50 mcg/mL VL 2,500 MCG/50 ML VIAL IV SCH (01:40)
[2022-04-20] MEDS: Chlorhexidine MOUTHWASH 0.12% 15 ML UDC TOPICAL SCH ×6 (02:00→22:38)
[2022-04-20] MEDS: cefTRIAXone 1 gm/50 mL D5W 1 GM/50 ML BAG IV SCH (02:01)
[2022-04-20] MEDS: Propofol 10 mg/ml 100 ML BTL 100 ML IV SCH ×7 (02:29→23:56)
[2022-04-20] MEDS: Thiamine 100 MG/ML 2 ml VIAL 500 MG in NS 0.9% 250 ml 250 ML IV SCH ×3 (02:31→19:37)
[2022-04-20] MEDS: DOXYcycline 100 MG in NS 0.9% 250 ml 250 ML IVPB SCH ×2 (02:35→15:53)
[2022-04-20] MEDS: Enoxaparin 100 MG/ML SYR SUBCUT SCH ×2 (02:40→15:52)
[2022-04-20 04:41] LABS: ABS Lymphocytes 0.2 10^3/ul (1.0-4.8); ABS Monocytes 0.5 10^3/ul (0-0.8); ABS Neutrophils 9.9 10^3/ul (1.5-7.7); Hematocrit 45 % (35-47); Lymphocyte % 2.3 %; Mean Corpuscular HGB Conc 33 g/dL (31-36); Mean Corpuscular Hemoglobin 32 pg (27-31); Mean Corpuscular Volume 95 fL (80-97); Mean Platelet Volume 7.9 fL (7.4-10.4); Platelet Count 246 10^3/uL (150-450); Red Cell Distribution Width 16 % (10-15); White Blood Count 10.6 10^3/uL (3.5-10.8)
[2022-04-20 05:27] LABS: Albumin 3.3 g/dL (3.2-5.2); Albumin/Globulin Ratio 1.7 (1-3); Calcium 8.3 mg/dL (8.6-10.3); Globulin 1.9 g/dL (2-4); Magnesium 2.1 mg/dL (1.9-2.7); Potassium 4.2 mmol/L (3.5-5.0); Total Bilirubin 0.4 mg/dL (0.2-1.0); Total Protein 5.2 g/dL (6.4-8.9); eGFR CKD-EPI 65.7 (>60)
[2022-04-20] MEDS: Pantoprazole VIAL 40 MG VIAL IV SCH (06:10)
[2022-04-20] MEDS: Mometasone/Formoter 200/5 MDI INH SCH ×2 (06:46→19:01)
[2022-04-20] MEDS ORDERED: Lorazepam PYXIS KEY PRN (08:48)
[2022-04-20] MEDS: LORazepam 2 mg VIAL 1 ml IV PUSH PRN ×5 (10:34→23:19)
[2022-04-20] MEDS ORDERED: Furosemide 40 mg/4 ml IV VIAL IV ONE (11:30)
[2022-04-20] MEDS ORDERED: Folic Acid IV 1 MG in NS 0.9% 50 ML 50 ML IV ONE (12:30)
[2022-04-21] MEDS: methylPREDNISolone SOD SUCC 125 mg 2 ML VIAL IV SCH ×2 (00:05→08:42)
[2022-04-21] MEDS: Albuterol/Ipratropium NEB.SOL (2.5/0.5 MG) 3 ML NEB.SOLN INH SCH ×4 (00:34→20:00)
[2022-04-21] MEDS: Chlorhexidine MOUTHWASH 0.12% 15 ML UDC TOPICAL SCH ×5 (02:20→18:06)
[2022-04-21] MEDS: cefTRIAXone 1 gm/50 mL D5W 1 GM/50 ML BAG IV SCH (02:20)
[2022-04-21] MEDS: Enoxaparin 100 MG/ML SYR SUBCUT SCH ×2 (02:20→15:35)
[2022-04-21] MEDS: LORazepam 2 mg VIAL 1 ml IV PUSH PRN ×5 (03:03→20:27)
[2022-04-21] MEDS: Thiamine 100 MG/ML 2 ml VIAL 500 MG in NS 0.9% 250 ml 250 ML IV SCH ×3 (03:08→20:27)
[2022-04-21] MEDS: DOXYcycline 100 MG in NS 0.9% 250 ml 250 ML IVPB SCH ×2 (03:08→15:01)
[2022-04-21] MEDS: Propofol 10 mg/ml 100 ML BTL 100 ML IV SCH ×5 (03:37→19:37)
[2022-04-21 04:15] LABS: ABS Lymphocytes 0.2 10^3/ul (1.0-4.8); ABS Monocytes 0.5 10^3/ul (0-0.8); ABS Neutrophils 8.7 10^3/ul (1.5-7.7); Hematocrit 46 % (35-47); Hemoglobin 15.3 g/dL (12.0-16.0); Lymphocyte % 2.4 %; Mean Corpuscular HGB Conc 33 g/dL (31-36); Mean Corpuscular Hemoglobin 31 pg (27-31); Mean Corpuscular Volume 95 fL (80-97); Mean Platelet Volume 7.5 fL (7.4-10.4); Platelet Count 231 10^3/uL (150-450); Red Blood Count 4.89 10^6 /uL (3.70-4.87); Red Cell Distribution Width 16 % (10-15); White Blood Count 9.4 10^3/uL (3.5-10.8)
[2022-04-21 04:49] LABS: Calcium 8.3 mg/dL (8.6-10.3); Magnesium 2.1 mg/dL (1.9-2.7); Phosphorus 4.4 mg/dL (2.5-5.0); Potassium 4.3 mmol/L (3.5-5.0); eGFR CKD-EPI 70.8 (>60)
[2022-04-21] MEDS: Pantoprazole VIAL 40 MG VIAL IV SCH (06:28)
[2022-04-21] MEDS: Mometasone/Formoter 200/5 MDI INH SCH ×2 (09:07→20:01)
[2022-04-21] MEDS ORDERED: Lorazepam PYXIS KEY ONE (15:16)
[2022-04-21] MEDS ORDERED: methylPREDNISolone SOD SUCC 40 mg/ml 1 ml VIAL IV SCH ×2 (16:00)
[2022-04-21] MEDS ORDERED: Metoprolol Tartrate 5 mg VIAL 5 ml VIAL (1 mg/ml) IV PRN (16:07)
[2022-04-21 20:10] LABS: PCO2 Arterial 63 mmHg (35-45); PO2 Arterial 73 mmHg (80-100)
[2022-04-21] MEDS: Acetaminophen IV 1 GM/100ML 1,000 MG/100 ML BAG IV PRN (20:27)
[2022-04-22] MEDS: Propofol 10 mg/ml 100 ML BTL 100 ML IV SCH ×6 (00:03→21:25)
[2022-04-22] MEDS: Chlorhexidine MOUTHWASH 0.12% 15 ML UDC TOPICAL SCH ×7 (00:28→21:37)
[2022-04-22] MEDS: LORazepam 2 mg VIAL 1 ml IV PUSH PRN ×2 (00:28→04:52)
[2022-04-22] MEDS: Albuterol/Ipratropium NEB.SOL (2.5/0.5 MG) 3 ML NEB.SOLN INH SCH ×5 (00:36→22:35)
[2022-04-22] MEDS: cefTRIAXone 1 gm/50 mL D5W 1 GM/50 ML BAG IV SCH (03:02)
[2022-04-22] MEDS: Thiamine 100 MG/ML 2 ml VIAL 500 MG in NS 0.9% 250 ml 250 ML IV SCH ×3 (03:02→19:27)
[2022-04-22] MEDS: methylPREDNISolone SOD SUCC 40 mg/ml 1 ml VIAL IV SCH ×2 (03:17→16:15)
[2022-04-22] MEDS: Enoxaparin 100 MG/ML SYR SUBCUT SCH ×2 (03:17→16:16)
[2022-04-22] MEDS: DOXYcycline 100 MG in NS 0.9% 250 ml 250 ML IVPB SCH ×2 (03:49→15:57)
[2022-04-22] MEDS: Pantoprazole VIAL 40 MG VIAL IV SCH (04:30)
[2022-04-22 04:48] LABS: ABS Lymphocytes 0.5 10^3/ul (1.0-4.8); ABS Monocytes 0.7 10^3/ul (0-0.8); Eosinophil % 0.1 %; Hematocrit 46 % (35-47); Hemoglobin 15.1 g/dL (12.0-16.0); Lymphocyte % 4.9 %; Mean Corpuscular HGB Conc 33 g/dL (31-36); Mean Corpuscular Hemoglobin 31 pg (27-31); Mean Corpuscular Volume 96 fL (80-97); Mean Platelet Volume 7.8 fL (7.4-10.4); Platelet Count 202 10^3/uL (150-450); Red Blood Count 4.81 10^6 /uL (3.70-4.87); Red Cell Distribution Width 16 % (10-15); White Blood Count 9.3 10^3/uL (3.5-10.8)
[2022-04-22 05:25] LABS: Calcium 8.2 mg/dL (8.6-10.3); Magnesium 2.2 mg/dL (1.9-2.7); Phosphorus 4.2 mg/dL (2.5-5.0); Potassium 4.5 mmol/L (3.5-5.0)
[2022-04-22] MEDS ORDERED: Furosemide 40 mg/4 ml IV VIAL IV SLOW PU ONE (05:26)
[2022-04-22] MEDS: Mometasone/Formoter 200/5 MDI INH SCH ×2 (07:42→20:28)
[2022-04-22] MEDS ORDERED: Acetylcysteine INHALATION SOL 200 MG/ML NEB.SOLN 10 ML ONE (11:13)
[2022-04-22] MEDS ORDERED: Acetylcysteine INH SOL (RT) 200 MG/ML 4 ML VIAL INH PRN (11:31)
[2022-04-22] MEDS ORDERED: Dexmedetomidine 1,000 MCG in NS 0.9% 250 ml 240 ML IV SCH (19:00)
[2022-04-23] MEDS: Propofol 10 mg/ml 100 ML BTL 100 ML IV SCH ×5 (01:38→21:13)
[2022-04-23] MEDS: Chlorhexidine MOUTHWASH 0.12% 15 ML UDC TOPICAL SCH ×6 (01:41→21:12)
[2022-04-23] MEDS: LORazepam 2 mg VIAL 1 ml IV PUSH PRN ×4 (01:43→16:10)
[2022-04-23] MEDS: cefTRIAXone 1 gm/50 mL D5W 1 GM/50 ML BAG IV SCH (01:45)
[2022-04-23] MEDS: Albuterol/Ipratropium NEB.SOL (2.5/0.5 MG) 3 ML NEB.SOLN INH SCH ×6 (02:23→21:51)
[2022-04-23] MEDS: DOXYcycline 100 MG in NS 0.9% 250 ml 250 ML IVPB SCH ×2 (02:57→15:12)
[2022-04-23] MEDS: Enoxaparin 100 MG/ML SYR SUBCUT SCH ×2 (03:01→15:12)
[2022-04-23] MEDS: Thiamine 100 MG/ML 2 ml VIAL 500 MG in NS 0.9% 250 ml 250 ML IV SCH (03:54)
[2022-04-23] MEDS: methylPREDNISolone SOD SUCC 40 mg/ml 1 ml VIAL IV SCH (03:55)
[2022-04-23 04:30] LABS: Hematocrit 47 % (35-47); Hemoglobin 15.1 g/dL (12.0-16.0); Mean Corpuscular HGB Conc 32 g/dL (31-36); Mean Corpuscular Hemoglobin 31 pg (27-31); Mean Corpuscular Volume 97 fL (80-97); Mean Platelet Volume 8.4 fL (7.4-10.4); Platelet Count 163 10^3/uL (150-450); Red Blood Count 4.82 10^6 /uL (3.70-4.87); Red Cell Distribution Width 16 % (10-15)
[2022-04-23 05:06] LABS: Blood Urea Nitrogen 32 mg/dL (6-24); CO2 Carbon Dioxide 34 mmol/L (22-32); Calcium 8.2 mg/dL (8.6-10.3); Chloride 99 mmol/L (101-111); Glucose 104 mg/dL (70-100); Sodium 137 mmol/L (135-145); eGFR CKD-EPI 98.7 (>60)
[2022-04-23 05:08] LABS: Anion Gap 4 mmol/L (2-11)
[2022-04-23] MEDS: Pantoprazole VIAL 40 MG VIAL IV SCH (05:45)
[2022-04-23 06:53] LABS: Anisocytosis 1+; Target Cells 1+
[2022-04-23 06:54] LABS: ABS Lymphocytes 0.9 10^3/ul (1.0-4.8); ABS Monocytes 0.7 10^3/ul (0-0.8); ABS Neutrophils 5.4 10^3/ul (1.5-7.7); Eosinophil % 0.2 %; Lymphocyte % 12.5 %; Nucleated Red Blood Cells % 0.1; Smudge Cells Present
[2022-04-23] MEDS: Mometasone/Formoter 200/5 MDI INH SCH (07:04)
[2022-04-23] MEDS: Furosemide 40 mg/4 ml IV VIAL IV SLOW PU SCH (10:19)
[2022-04-24] MEDS ORDERED: cefTRIAXone 1 GM Q24H (ADVAN) IVPB SCH (02:00)
[2022-04-24] MEDS: Chlorhexidine MOUTHWASH 0.12% 15 ML UDC TOPICAL SCH ×4 (02:13→14:52)
[2022-04-24] MEDS: Propofol 10 mg/ml 100 ML BTL 100 ML IV SCH ×2 (02:23→06:06)
[2022-04-24] MEDS: DOXYcycline 100 MG in NS 0.9% 250 ml 250 ML IVPB SCH (02:51)
[2022-04-24] MEDS: Albuterol/Ipratropium NEB.SOL (2.5/0.5 MG) 3 ML NEB.SOLN INH SCH ×6 (03:01→22:57)
[2022-04-24] MEDS: Enoxaparin 100 MG/ML SYR SUBCUT SCH ×2 (03:37→14:56)
[2022-04-24 04:03] LABS: ABS Eosinophils 0.1 10^3/ul (0-0.6); ABS Lymphocytes 0.9 10^3/ul (1.0-4.8); ABS Monocytes 0.9 10^3/ul (0-0.8); ABS Neutrophils 7.4 10^3/ul (1.5-7.7); Eosinophil % 0.9 %; Hematocrit 47 % (35-47); Lymphocyte % 9.9 %; Mean Corpuscular HGB Conc 32 g/dL (31-36); Mean Corpuscular Hemoglobin 31 pg (27-31); Mean Corpuscular Volume 96 fL (80-97); Mean Platelet Volume 8.3 fL (7.4-10.4); Platelet Count 160 10^3/uL (150-450); Red Blood Count 4.89 10^6 /uL (3.70-4.87); Red Cell Distribution Width 16 % (10-15); White Blood Count 9.3 10^3/uL (3.5-10.8)
[2022-04-24 05:02] LABS: Calcium 8.5 mg/dL (8.6-10.3); Potassium 3.9 mmol/L (3.5-5.0); eGFR CKD-EPI 99.7 (>60)
[2022-04-24] MEDS: Pantoprazole VIAL 40 MG VIAL IV SCH (05:59)
[2022-04-24] MEDS: Furosemide 40 mg/4 ml IV VIAL IV SLOW PU SCH (08:40)
[2022-04-24] MEDS ORDERED: methylPREDNISolone SOD SUCC 40 mg/ml 1 ml VIAL IV SCH (09:00)
[2022-04-24] MEDS ORDERED: Furosemide 40 mg/4 ml IV VIAL IV ONE (09:08)
[2022-04-24] MEDS ORDERED: acetaZOLAMIDE IV 500 MG in NS 0.9% 50 ML 50 ML IVPB ONE (09:09)
[2022-04-24 11:02] LABS: PCO2 Arterial 56 mmHg (35-45)
[2022-04-24 11:08] LABS: PO2 Arterial 57 mmHg (80-100)
[2022-04-24 13:40] LABS: HDL Cholesterol 52.6 mg/dL
[2022-04-25] MEDS ORDERED: cefTRIAXone 1 gm/50 mL D5W 1 GM/50 ML BAG IV SCH (02:00)
[2022-04-25] MEDS: Albuterol/Ipratropium NEB.SOL (2.5/0.5 MG) 3 ML NEB.SOLN INH SCH ×4 (02:47→19:38)
[2022-04-25] MEDS: Enoxaparin 100 MG/ML SYR SUBCUT SCH (05:00)
[2022-04-25] MEDS: Pantoprazole VIAL 40 MG VIAL IV SCH (05:24)
[2022-04-25 05:49] LABS: ABS Eosinophils 0.1 10^3/ul (0-0.6); ABS Lymphocytes 1.1 10^3/ul (1.0-4.8); ABS Monocytes 0.8 10^3/ul (0-0.8); ABS Neutrophils 6.8 10^3/ul (1.5-7.7); Eosinophil % 1.2 %; Hematocrit 48 % (35-47); Hemoglobin 15.6 g/dL (12.0-16.0); Lymphocyte % 12.5 %; Mean Corpuscular HGB Conc 33 g/dL (31-36); Mean Corpuscular Hemoglobin 31 pg (27-31); Mean Corpuscular Volume 95 fL (80-97); Mean Platelet Volume 8.9 fL (7.4-10.4); Platelet Count 185 10^3/uL (150-450); Red Blood Count 5.07 10^6 /uL (3.70-4.87); Red Cell Distribution Width 15 % (10-15); White Blood Count 8.9 10^3/uL (3.5-10.8)
[2022-04-25 06:23] LABS: Blood Urea Nitrogen 29 mg/dL (6-24); CO2 Carbon Dioxide 34 mmol/L (22-32); Calcium 8.8 mg/dL (8.6-10.3); Chloride 99 mmol/L (101-111); Glucose 91 mg/dL (70-100); Magnesium 2.1 mg/dL (1.9-2.7); Sodium 139 mmol/L (135-145); eGFR CKD-EPI 107.7 (>60)
[2022-04-25 06:38] LABS: Anion Gap 6 mmol/L (2-11)
[2022-04-25] MEDS: Acetaminophen IV 1 GM/100ML 1,000 MG/100 ML BAG IV PRN (07:50)
[2022-04-25] MEDS ORDERED: methylPREDNISolone SOD SUCC 40 mg/ml 1 ml VIAL IV SCH (09:00)
[2022-04-25] MEDS: Enoxaparin 80 MG/0.8 ML SYR SUBCUT SCH (16:35)
[2022-04-25] MEDS: Tiotropium Brom/Olodaterol MDI INH SCH (19:38)
[2022-04-26] MEDS: Albuterol/Ipratropium NEB.SOL (2.5/0.5 MG) 3 ML NEB.SOLN INH SCH ×4 (00:59→19:03)
[2022-04-26 04:36] LABS: ABS Eosinophils 0.1 10^3/ul (0-0.6); ABS Lymphocytes 1.2 10^3/ul (1.0-4.8); ABS Monocytes 0.9 10^3/ul (0-0.8); ABS Neutrophils 8.1 10^3/ul (1.5-7.7); Eosinophil % 1.1 %; Hematocrit 49 % (35-47); Hemoglobin 15.9 g/dL (12.0-16.0); Lymphocyte % 11.6 %; Mean Corpuscular HGB Conc 33 g/dL (31-36); Mean Corpuscular Hemoglobin 31 pg (27-31); Mean Corpuscular Volume 95 fL (80-97); Mean Platelet Volume 8.7 fL (7.4-10.4); Platelet Count 213 10^3/uL (150-450); Red Blood Count 5.12 10^6 /uL (3.70-4.87); Red Cell Distribution Width 15 % (10-15); White Blood Count 10.3 10^3/uL (3.5-10.8)
[2022-04-26 05:30] LABS: Calcium 8.5 mg/dL (8.6-10.3); Magnesium 1.9 mg/dL (1.9-2.7); Potassium 4.2 mmol/L (3.5-5.0); eGFR CKD-EPI 105.2 (>60)
[2022-04-26] MEDS: Enoxaparin 80 MG/0.8 ML SYR SUBCUT SCH (06:11)
[2022-04-26] MEDS: Tiotropium Brom/Olodaterol MDI INH SCH (07:01)
[2022-04-26] MEDS ORDERED: Magnesium Sulfate IV 1GM/100ML 1 GM/100 ML BAG IV ONE (07:38)
[2022-04-26] MEDS ORDERED: methylPREDNISolone SOD SUCC 40 mg/ml 1 ml VIAL IV SCH (09:00)
[2022-04-27] MEDS: Albuterol/Ipratropium NEB.SOL (2.5/0.5 MG) 3 ML NEB.SOLN INH SCH ×2 (00:39→07:16)
[2022-04-27 07:24] LABS: ABS Eosinophils 0.2 10^3/ul (0-0.6); ABS Lymphocytes 1.4 10^3/ul (1.0-4.8); ABS Monocytes 1.1 10^3/ul (0-0.8); Hematocrit 48 % (35-47); Hemoglobin 15.5 g/dL (12.0-16.0); Lymphocyte % 16.3 %; Mean Corpuscular HGB Conc 33 g/dL (31-36); Mean Corpuscular Hemoglobin 31 pg (27-31); Mean Corpuscular Volume 96 fL (80-97); Mean Platelet Volume 8.6 fL (7.4-10.4); Nucleated Red Blood Cells % 0.1; Platelet Count 249 10^3/uL (150-450); Red Blood Count 4.98 10^6 /uL (3.70-4.87); Red Cell Distribution Width 15 % (10-15); White Blood Count 8.8 10^3/uL (3.5-10.8)
[2022-04-27] MEDS: Tiotropium Brom/Olodaterol MDI INH SCH (07:59)
[2022-04-27 08:00] LABS: Calcium 8.4 mg/dL (8.6-10.3); Magnesium 2.1 mg/dL (1.9-2.7); Potassium 4.4 mmol/L (3.5-5.0); eGFR CKD-EPI 100.9 (>60)
[2022-04-27 11:52] VITALS: BP 108/73
== END 2022-04-27 13:15 | disposition home or self-care (01) | DRG 720 ==
LOC: ED 23:40 → EDHOLD 04-18 01:50 → ICU 04-18 03:16 → MEDTELE 04-26 20:52
PROVIDERS: ADMIT Surgery Surgical Critical Care; ATTEND Surgery Surgical Critical Care